=== PATIENT | male | born 1985 | race Caucasian/White ===

== ENCOUNTER 2016-07-21 08:53 | Inpatient (IN) ==
[2016-07-21] MEDS ORDERED: PROTONIX 80 MG in NS 80 ML IV ONE ×2 (09:26→10:30)
[2016-07-21] MEDS ORDERED: ZOFRAN IV ONE ×2 (09:26→12:04)
--- NOTE | 2016-07-21 09:38 | PROVIDER DOCUMENTATION ---
HPI-Abdominal Pain/GI Problem - General Chief Complaint: Vomiting Blood Stated Complaint: ABD PAIN,VOMITING BLOOD,LOW B/P Time Seen by Provider: 07/21/16 09:01 Source: patient Allergies/Adverse Reactions: Patient Allergies Allergy/AdvReac Type Severity Reaction Status Date / Time Iodinated Contrast Media - Allergy ITCHING Verified 07/21/16 09:59 Oral and [IV Dye] Home Medications: Home Medication List Medication Instructions Recorded Confirmed Last Taken Type Lisinopril 10 mg PO DAILY 07/21/16 07/21/16 07/20/16 History - History of Present Illness-ABD Nature of Presenting Problems: patient is a 31 y/o M that presents to the ER with abdominal cramping and nausea /vomiting( blood) this am on his way to work. He reports 24 hours of generalized weakness and dizziness to the point of near syncope. Patient denies any diarrhea or rectal bleeding. patient has history of ulcers in which he was admitted in April 2016 Abdominal Pain Onset Location: reports: [facility] Pain Radiation: reports: no radiation Quality of Pain: reports: aching, cramping Severity in ED: reports: moderate Onset/Duration: reports: abrupt, this morning Timing: reports: still present, constant Activities at Onset: reports: none Modifying Factors: improves with: nothing Associated Symptoms: reports: dizziness, nausea, vomiting, weakness. denies: back/neck pain, chest pain, constipation, diarrhea, fever/chills, genitourinary problems, shortness of breath Rectal Bleeding: reports: none Rectal Pain: reports: none Similar Symptoms Previously?: Yes Recently seen or treated by another doctor?: No Review of Systems - Adult - REVIEW OF SYSTEMS - ADULT Constitutional: denies: chills, fever Eyes: reports: no symptoms reported Ears, Nose, Mouth & Throat: reports: no symptoms reported Cardiovascular: denies: chest pain, palpitations, syncope Respiratory: denies: cough, shortness of breath, wheezing Gastrointestinal: reports: abdominal pain, hematemesis, nausea, vomiting. denies: constipation, diarrhea, rectal bleeding Genitourinary: denies: dysuria, frequency, hematuria Musculoskeletal: reports: muscle weakness. denies: joint pain, joint swelling Integumentary: reports: no symptoms reported Neurological: reports: dizziness/vertigo. denies: headache/migraines, seizure, syncope Psychiatric: reports: no symptoms reported Endocrine: reports: no symptoms reported Hematologic/Lymphatic: reports: no symptoms reported Allergic/Immunologic: reports: no symptoms reported All Other Systems: Reviewed and Negative Past History - Adult - PAST MEDICAL HISTORY-ADULT Review of Records: reports: Nursing Assessment Review, Medications Reviewed Gastrointestinal: reports: ulcer - IMMUNIZATION STATUS Childhood Immunizations: See Nurse Assessment Flu Vaccine: See Nurse Assessment - FAMILY HISTORY Family History: reviewed, not pertinent - SOCIAL HISTORY Smoking: non-smoker Living Situation: family Physical Exam-General - PHYSICAL EXAM-ADULT Initial Vital Signs Reviewed: Yes - CONSTITUTIONAL General Appearance: alert, no apparent distress - EYES Eyes: PERRL/EOMI, pink conjunctivae - HEAD, EARS, NOSE, MOUTH & THROAT HENMT: normocephalic/atraumatic, TMs normal, pharynx normal, other (dry oral mucosa) - NECK Neck: non-tender, full range of motion, normal inspection - RESPIRATORY Respiratory: lungs clear, normal breath sounds, no respiratory distress, no accessory muscle use - CARDIOVASCULAR Cardiovascular: regular rate, rhythm, no edema, no murmur - GASTROINTESTINAL (ABDOMEN) Abdominal Exam: soft, no organomegaly, no pulsatile mass, abnormal bowel sounds (hypoactive), tenderness (LUQ). negative: distended, guarding, rigid, hernia, mass - MUSCULOSKELETAL Back Exam: no CVA tenderness, no vertebral tenderness Extremity: normal range of motion, normal inspection, no pedal edema - SKIN Integumentary: normal color, warm/dry - NEUROLOGIC Neurologic: grossly normal, no motor/sensory deficits - PSYCHIATRIC Psych/Mental Status: normal mood/affect, normal thought content, normal thought process, oriented x 3 Progress - PLAN OF CARE/RESULTS Progress/Plan/Lab Results: plan of care-labs, meds, fluids Vital Signs Temp Pulse Pulse Pulse Pulse Resp BP 07/21/16 10:30 61 86 57 L 07/21/16 08:56 97.8 F 80 20 148/106 BP BP BP Pulse Ox 07/21/16 10:30 136/91 156/82 142/82 07/21/16 08:56 100 Iodinated Contrast Media - Oral and [IV Dye] Allergy (Verified 07/21/16 09:59) ITCHING Lisinopril 10 mg PO DAILY 07/21/16 Laboratory 07/21/16 07/21/16 07/21/16 09:37 09:37 09:37 WBC 7.73 RBC 5.30 Hgb 16.1 Hct 45.7 MCV 86.2 MCH 30.4 MCHC 35.2 RDW Std Deviation 12.5 Plt Count 306 MPV 9.8 Immature Gran % (Auto) 0.0 Neut % (Auto) 54.7 Lymph % (Auto) 35.3 Iroquois % (Auto) 7.5 Eos % (Auto) 1.6 Baso % (Auto) 0.9 H Immature Gran # (Auto) 0.00 Neut # (Auto) 4.23 Lymph # (Auto) 2.73 Iroquois # (Auto) 0.58 Eos # (Auto) 0.12 Baso # (Auto) 0.07 PT 11.3 INR 1.07 PTT (Actin FS) 28.5 Sodium 136 Potassium 4.4 Chloride 100 Carbon Dioxide 23 L Anion Gap 13 BUN 20 Creatinine 0.8 Estimated GFR/1.73 m2 > 60 BUN/Creatinine Ratio 25 Glucose 99 Calculated Osmolality 275 Calcium 9.1 Total Bilirubin 0.71 AST 30 ALT 27 Alkaline Phosphatase 85 Total Protein 7.9 Albumin 4.5 Globulin 3.4 Albumin/Globulin Ratio 1.3 Orders Category Date Time Status Orthostatic Vital Signs NOW Care 07/21/16 09:03 Active Saline Loc DIRECTED Care 07/21/16 09:02 Active CBC WITH ELECTRONIC DIFF [HEME] Stat Lab 07/21/16 09:37 Completed COMPREHENSIVE METABOLIC PANEL [CHEM] Stat Lab 07/21/16 09:37 Completed OCCULT BLOOD NON-FECES PL Stat Lab 07/21/16 09:02 Uncollected OCCULT BLOOD SCREEN STOOL PL Stat Lab 07/21/16 09:02 Uncollected PROTIME WITH INR [COAG] Stat Lab 07/21/16 09:37 Completed PTT [COAG] Stat Lab 07/21/16 09:37 Completed TYPE & SCREEN [BBK] Stat Lab 07/21/16 12:55 Received 0.9% Sodium Chloride Inj [Ns] 1,000 ml Med 07/21/16 09:02 Active IV 125 mls/hr 0.9% Sodium Chloride Inj [Ns] 80 ml Med 07/21/16 09:30 Ordered Pantoprazole [Protonix] 80 mg IV 10 mls/hr 0.9% Sodium Chloride Inj [Ns] 80 ml Med 07/21/16 10:30 Active Pantoprazole [Protonix] 80 mg IV 10 mls/hr Hydromorphone [Dilaudid] Med 07/21/16 12:04 Discontinued 1 mg IV NOW ONE Ondansetron [Zofran] Med 07/21/16 09:26 Discontinued 4 mg IV NOW ONE Ondansetron [Zofran] Med 07/21/16 12:04 Discontinued 4 mg IV NOW ONE Pantoprazole [Protonix] 80 mg Med 07/21/16 09:26 Discontinued 0.9% Sodium Chloride Inj [Ns] 80 ml IV NOW - CONSULTS/PCP/HOSPITALIST Notification #1 *Consult/PCP/Hospitalist*: Dr>Don Time Discussed: 12:55 Consult Disposition: Will see in ED, Admit Departure - Departure Time of Disposition Order: 13:08 DIAGNOSIS: Abdominal pain, Nausea & vomiting, Hematemesis with nausea Disposition: ADMITTED INPATIENT 09 Certified Medical Emergency: Emergent Condition: Stable Attestation - Scribe Verification/Attestation Scribe:: Umang Manrique Acting as Scribe for:: Ed Styles Scribe documention review:: This chart was documented by a scribe and accurately reflects the service the provider performed and the decisions made by the provider. Physician Attestation - Physician Attestation I, the provider, attest to the following statement:: Ed Styles Physician documentation Attestation:: This documentation recorded by the scribe accurately reflects the service I personally performed and the decisions made by me.
[2016-07-21 09:52] LABS: MANUAL DIFF NEEDED? NO
[2016-07-21 09:54] LABS: BASO% 0.9 % (0.0-0.8); EOS# 0.12 X1000 (0.0-0.7); EOS% 1.6 % (0.0-10.0); HEMATOCRIT 45.7 % (42.0-52.0); HEMOGLOBIN 16.1 g/dL (14.0-18.0); LYMPH# 2.73 X1000 (1.2-3.4); LYMPH% 35.3 % (20.5-51.1); MCH 30.4 PG (27-31); MCHC 35.2 g/dL (33-37); MCV 86.2 FL (81-99); MONO# 0.58 X1000 (0.11-0.59); MONO% 7.5 % (1.7-9.3); MPV 9.8 FL (7.4-10.4); NEUT% 54.7 % (42.2-75.2); PLT 306 X1000 (130-400)
[2016-07-21 10:10] LABS: INR 1.07; PROTIME 11.3 Seconds (9.2-11.7); PTT 28.5 Seconds (22.0-36.0)
[2016-07-21 10:13] LABS: AGAP 13; ALBUMIN 4.5 g/dL (3.5-5.0); ALKALINE PHOSPHATASE 85 U/L (32-122); BUN 20 mg/dL (8-22); CALCIUM 9.1 mg/dL (8.8-10.2); CHLORIDE 100 mmol/L (98-107); COSMO 275; GOT 30 U/L (10-34); GPT 27 U/L (10-44); POTASSIUM 4.4 mmol/L (3.5-5.1); SODIUM 136 mmol/L (136-145); TCO2 23 mmol/L (25-35); TOTAL BILIRUBIN 0.71 mg/dL (0.20-1.00); TOTAL PROTEIN 7.9 g/dL (6.3-8.3)
[2016-07-21] MEDS: NS 1,000 ML IV PRN ×2 (10:24→17:23)
[2016-07-21] MEDS ORDERED: DILAUDID IV ONE (12:04)
[2016-07-21] MEDS ORDERED: ZOFRAN IV PRN (14:17)
[2016-07-21] MEDS: CARAFATE LIQUID PO SCH ×2 (14:27→21:05)
--- NOTE | 2016-07-21 15:59 | Diag Imaging Result Document ---
PROCEDURE NAME: ABDOMEN/PELVIS W/O CONTRAST - 07/21/2016 CT ABDOMEN AND PELVIS WITHOUT CONTRAST: COMPARISON: None available. FINDINGS: The stomach and duodenum are grossly unremarkable given the limitations of an unenhanced study. The gallbladder appears normal. There is a staple line associated with the distal sigmoid colon indicating prior partial colectomy. There are few scattered colonic diverticula. There is no evidence of diverticulitis. There is no evidence of bowel obstruction. There are few nonspecific loops of small bowel containing gas, likely representing mild ileus. The appendix is normal. The kidneys and gallbladder are unremarkable. No focal inflammatory change, free abdominal gas, or free fluid is appreciated. There is a tiny umbilical hernia that contains only fat. The remainder of the solid viscera of the abdomen and pelvis and the remainder of the GI tract is essentially unremarkable. IMPRESSION: 1. A few gas-filled loops of small bowel that are nonspecific and may represent mild ileus. There is no evidence of obstruction. 2. Not mentioned above, there are shotty mesenteric lymph nodes with surrounding mild haziness at the root of the mesentery. They are nonspecific but are often associated with mesenteric panniculitis. 3. Incidental/nonacute findings detailed above but no definite acute pathology, otherwise. [facility]
--- NOTE | 2016-07-21 17:14 | HISTORY AND PHYSICAL ---
PRIMARY CARE PROVIDERS: Are all located through the [facility] in [place]. CHIEF COMPLAINT: Vomiting blood. HISTORY OF PRESENT ILLNESS: Mr. Bustillo is a 31-year-old male with a past medical history of recent gastric ulcer in April of 2016, diverticulitis, hypertension, SVT, PAT, anxiety, and depression, who states that yesterday evening he felt a little bit woozy but shrugged it off. No nausea or vomiting at that time. He awoke this morning with some vomiting of blood. He decided he felt like he was okay to go to work, went to work, and on his way to work he started getting really woozy. Stated that he felt like his blood pressure was really low and so he came here for medical attention. Upon further evaluation, he states that in April of 2016 he spent 1 night in the hospital for gastric ulcer that was found on EGD, in [place]. He was treated with, he states, Protonix and Carafate but did not continue to take medications after leaving. He also has started complaining of some epigastric type pain even to palpation but did not have this pain prior to today. We will admit him to the medical floor, will do IV Protonix, start him on Carafate, and consult gastroenterology. PAST MEDICAL HISTORY: 1. Gastric ulcer in April of 2016. Did not require blood at that time. 2. Diverticulitis in the past, status post sigmoid colectomy secondary to diverticulitis. 3. Hypertension, takes lisinopril. 4. SVT/PAT. Apparently he supposed to Verapamil for this. He does not have it listed on his medication list and he states that his last SVT or atrial tachycardia was about a week ago. 5. Anxiety and depression. PAST SURGICAL HISTORY: 1. Sigmoid colectomy. 2. Cardiac ablation. 3. Ureter/kidney reconstruction as a child. 4. April EGD. SOCIAL HISTORY: One pack per week smoker. Drinks alcohol about once every 2 weeks. Denies illicit drug use. He is a and he is . FAMILY HISTORY: Positive for hypertension. REVIEW OF SYSTEMS: Fourteen point review of systems were complete and all were negative except those mentioned in the above HPI. ALLERGIES: Iodine and contrast, oral and IV. HOME MEDICATIONS: Lisinopril. LABORATORY DATA: White blood cells 7,000, hemoglobin 16, hematocrit 45, platelet count 306,000. INR 1.07, PTT is 28.5. Sodium 136, potassium 4.4, BUN 20, creatinine 0.8, glucose 99, calcium 9.1. Liver enzymes normal. IMAGING: Abdominal and pelvic CT without contrast has been ordered. PHYSICAL EXAMINATION: VITAL SIGNS: Temperature is 97.8 degrees, heart rate looks like it is anywhere from 56-80. Respiratory rate 18, blood pressure 129/73, O2 saturation 98% on room air. He is 6 feet 1 inch tall, 232 pounds. He did have orthostatics ran. It looks like the heart rate is what changed the most. Sitting heart rate was 61 and blood pressure 136/91, standing heart rate 86 and blood pressure 156/82, and supine heart rate 57 and blood pressure 142/82. GENERAL: Mr. Bustillo is a 31-year-old male in no acute distress. Able to answer all questions appropriately. HEENT: Atraumatic, normocephalic. Pupils equal, round, reactive to light. Extraocular movements intact. NECK: No JVD or carotid bruits noted. CARDIOVASCULAR: S1, S2. Regular rate and rhythm. No rubs, gallops, or murmurs. PULMONARY: Clear to auscultate. Bilateral breath sounds. No accessory muscle use or work of breathing noted. GI: Soft. Positive bowel sounds x4. Tender in the epigastric region to palpation. NEUROLOGIC: A O x4. Moves all extremities equally. EXTREMITIES: No edema noted. There are +2 dorsalis and radial pulses. SKIN: Warm, dry, intact. ASSESSMENT AND PLAN: 1. Recent history of gastric ulcer that was bleeding, now with complaints of vomiting blood. Gastroenterology consult. Will do serial hematocrits and hemoglobins. Start him on Carafate. IV drip Protonix. NPO after midnight. Clears until then. 2. History of supraventricular tachycardia and paroxysmal atrial tachycardia. He does have some irregularity to his heart rate. He did complain of feeling woozy as if his blood pressure was low. We will continue with orthostatics every 12 hours and do an EKG. 3. Hypertension. Hold lisinopril for now. 4. Anxiety and depression noted. 5. Tobacco abuse. Cessation was discussed. 6. Gastrointestinal prophylaxis. Proton pump inhibitor. 7. Deep venous thrombosis prophylaxis. TEDs and pneumatics. Dictated by NUVIA Subramanian for Eloy Ochoa MD
[2016-07-21] MEDS: DILAUDID IV PRN ×2 (17:22→21:44)
[2016-07-21] MEDS: PROTONIX 80 MG in NS 80 ML IV SCH ×2 (19:30→21:04)
[2016-07-21 20:39] LABS: HEMATOCRIT 42.5 % (42.0-52.0); HEMOGLOBIN 14.7 g/dL (14.0-18.0)
--- NOTE | 2016-07-21 21:42 | CONSULTATION ---
DATE OF CONSULTATION: 07/21/2016 CONSULTING PHYSICIAN: Eloy Ochoa M.D. REASON FOR CONSULTATION: Abdominal pain and hematemesis. HISTORY: This is a 31-year-old gentleman who has a history of peptic ulcer disease. In fact he was admitted to the hospital in [place] in April of last year with GI bleed. He was found to have esophagitis and apparently had a bleeding gastric ulcer. I do not have the detailed report with me. This is what he has informed me. He was admitted to hospital today after he presented to the emergency room with sudden onset of abdominal pain associated with nausea. He had 1 episode of emesis and he had bright red blood in his emesis. He also had some clots and altered blood. Since then he has not had any nausea or vomiting but he continues to have abdominal pain. He points to the epigastric area, sharp, sometimes pressure-like. He reports that he had a bowel movement today at 11 in the morning which was normal. He has not had any melena. He does complain of feeling dizzy. In fact while driving to work he had to stop because of dizziness. He had some sinus symptoms yesterday with headache so he took some Tylenol Sinus and Aleve. He has had a history of gastroesophageal disease and takes medication for that. He denies any dysphagia or odynophagia. His appetite has been good up to today. He denies any constipation or diarrhea. He has not any melena or bright red blood per rectum. He tells me he felt febrile yesterday. He denies any dysuria, polyuria or hematuria. He had some cough but not productive and did not have hemoptysis. He has a history of SVT. In fact he had 2 ablations done. He did have some palpitations today. PAST MEDICAL HISTORY: Significant for hypertension, history of SVT status post ablation x2, history of bleeding peptic ulcer disease and gastroesophageal disease. He also has history of nephrolithiasis and diverticulitis status post colon resection. PAST SURGICAL HISTORY: He has had sigmoid resection, ablation x2, ureter repair as a child. MEDICATIONS PRIOR TO HOSPITALIZATION: He was on lisinopril 10 mg daily. ALLERGIES: He claims to be allergic to IVP dye. SOCIAL HISTORY: He is and smokes about a pack of cigarette which lasts about a week. He drinks on occasion. He drinks about 6 cocktails every other week or so. Does not use illicit drugs. FAMILY HISTORY: No history of colon cancer, stomach cancer, pancreatic cancer, kidney disease. However his sister has been diagnosed with Crohn's disease. REVIEW OF SYSTEMS: As per HPI as above. PHYSICAL EXAMINATION: General: On examination, very pleasant white male, overweight. He is conscious, alert, appears to be in no distress. Vital Signs: Temperature 97.5 degrees, pulse 55 per minute and regular, breathing at 18, blood pressure 172/92. He weighs about 230 pounds. He is 6 feet 1 inch tall. HEENT: Head is atraumatic, normocephalic. Eyes: Conjunctivae normal. Sclerae anicteric. Nares are patent. No discharge noted. Mouth mucosa is moist. Throat is normal. Neck: Supple. No lymphadenopathy or thyromegaly. Chest: Bilaterally symmetrical moving with respirations. Breath sounds audible bilaterally. No rhonchi or crepitations could be heard. Heart: S1 and S2 audible no murmur appreciated. Abdomen: Full, soft , but tender in the epigastric area slightly on the left side but no rebound tenderness or guarding noted. No mass or visceromegaly noted. Bowel sounds are audible. No pedal cyanosis or clubbing was noted. Central Nervous System: Grossly intact. No sensory or motor deficit. LABS: Reviewed. Showed WBC 7.73, hemoglobin 16.1, hematocrit 45.7, MCV 86.2, platelets were 306. PT 11.3, INR 1.07, PTT 28.5. CMP essentially normal. ASSESSMENT AND PLAN: This is a 31-year-old gentleman with history of bleeding peptic ulcer disease. He had EGD and treatment in April. He has presented with abdominal pain and hematemesis. Although is hematocrit and hemoglobin is stable, it seems like he has had a mild GI bleed. I would continue on proton pump inhibitor. This has already been started. Recheck hemoglobin and hematocrit. Transfuse as necessary. In the meantime we will schedule for esophagogastroduodenoscopy tomorrow and depending on the findings, further plans will be made. He may need urgent EGD if he starts to bleed again. I have explained the findings and plan with the patient. He understands all the pertinent questions. [facility]
[2016-07-22] MEDS: CARAFATE LIQUID PO SCH ×4 (02:01→14:56)
[2016-07-22] MEDS: DILAUDID IV PRN ×2 (02:05→10:40)
[2016-07-22 02:07] LABS: MANUAL DIFF NEEDED? NO
[2016-07-22 02:12] LABS: BASO% 0.8 % (0.0-0.8); EOS# 0.23 X1000 (0.0-0.7); EOS% 3.1 % (0.0-10.0); HEMATOCRIT 40.2 % (42.0-52.0); LYMPH# 3.41 X1000 (1.2-3.4); LYMPH% 45.3 % (20.5-51.1); MCH 30.2 PG (27-31); MCHC 34.8 g/dL (33-37); MCV 86.8 FL (81-99); MONO# 0.69 X1000 (0.11-0.59); MONO% 9.2 % (1.7-9.3); MPV 9.7 FL (7.4-10.4); NEUT% 41.6 % (42.2-75.2); PLT 291 X1000 (130-400); RBC 4.63 XMIL (4.7-6.1)
[2016-07-22 02:22] LABS: INR 1.09; PROTIME 11.6 Seconds (9.2-11.7); PTT 28.5 Seconds (22.0-36.0)
[2016-07-22 02:30] LABS: AGAP 9; ALBUMIN 3.7 g/dL (3.5-5.0); ALKALINE PHOSPHATASE 71 U/L (32-122); BUN 16 mg/dL (8-22); CALCIUM 8.6 mg/dL (8.8-10.2); CHLORIDE 100 mmol/L (98-107); COSMO 269; GOT 21 U/L (10-34); GPT 20 U/L (10-44); POTASSIUM 4.1 mmol/L (3.5-5.1); SODIUM 134 mmol/L (136-145); TCO2 25 mmol/L (25-35); TOTAL PROTEIN 6.4 g/dL (6.3-8.3)
[2016-07-22] MEDS: NS 1,000 ML IV PRN ×2 (03:59→12:07)
[2016-07-22] MEDS: PROTONIX 80 MG in NS 80 ML IV SCH (06:44)
--- NOTE | 2016-07-22 07:18 | EKG Report ---
Test Performed on : 07/22/2016 06:10:26 AM Test Reason : chest pain Blood Pressure : / mmHG Vent. Rate : 056 BPM Atrial Rate : 056 BPM P-R Int : 150 ms QRS Dur : 106 ms QT Int : 416 ms P-R-T Axes : 041 065 059 degrees QTc Int : 401 ms Sinus bradycardia. Otherwise normal ECG No previous ECGs available Confirmed by Sp Singh MD ([id number]) on 07/24/2016 9:48:07 PM
[2016-07-22 09:19] LABS: HEMATOCRIT 42.6 % (42.0-52.0); HEMOGLOBIN 14.6 g/dL (14.0-18.0)
--- NOTE | 2016-07-22 13:21 | PROGRESS NOTE ---
DATE: 07/22/2016 SUBJECTIVE: He states he is feeling better, but he still has some dyspepsia and epigastric discomfort. He has a history of ulcer in the past. I think the plan was to do an EGD this morning or sometime this afternoon. OBJECTIVE: Vital Signs: Temperature 98.2 degrees, he has remained afebrile. Pulse 60, respirations 18, blood pressure 123/80. Blood pressure is 138/87. No significant orthostasis. Lungs: Clear in all lung no. Cardiovascular: Regular rhythm and rate without murmur or S3. Abdomen: Soft. Skin: Warm and dry. LABORATORY DATA: White count 7530, hematocrit is 40, platelet count 291,000. Sodium 134, potassium 4.1, chloride 100, bicarbonate 25, BUN 16, creatinine 0.9, albumin 3.7. ASSESSMENT AND PLAN: Dyspepsia, upper gastrointestinal pain. The plan I think is for an esophagogastroduodenoscopy today. Dr. Noonan is consulted and feels he has a bleeding peptic ulcer. He had an esophagogastroduodenoscopy and treatment in April, but he presented with more abdominal pain, hemoptysis. His hematocrit is stable. Review of orders: I do not see any changes at this point. He is on Protonix drip, Carafate 1 gram every 6 hours.
[2016-07-22] MEDS ORDERED: MYLICON DROPS (DOSE) MISC ONE (13:44)
[2016-07-22] MEDS ORDERED: VERSED ONE (14:02)
[2016-07-22] MEDS ORDERED: DIPRIVAN 1% ONE (14:03)
[2016-07-22] MEDS ORDERED: LR 1,000 ML ONE (14:07)
[2016-07-22] MEDS ORDERED: XYLOCAINE-MPF 2% ONE (14:07)
[2016-07-22] MEDS ORDERED: ANESTHESIA PB SET 88 IN 5742 ONE (14:07)
[2016-07-22 14:29] LABS: HEMATOCRIT 40.3 % (42.0-52.0)
[2016-07-22 15:49] VITALS: BP 125/75
--- NOTE | 2016-07-22 19:46 | OPERATIVE NOTE ---
PROCEDURE DATE: 07/22/2016 PROCEDURE: Esophagogastroduodenoscopy and biopsy. PREOPERATIVE DIAGNOSIS: Upper gastrointestinal bleed. POSTOPERATIVE DIAGNOSIS: 1. Esophagitis. 2. Gastric ulcers. 3. Erosive gastritis. 4. Duodenitis. MEDICATION USED: MAC as per Anesthesia. SCOPE USED: Olympus GIF HQ-190. HISTORY: This is a 31-year-old gentleman who presented to the hospital with hematemesis. He was hemodynamically stable. Hemoglobin and hematocrit were also within acceptable range. Endoscopy was done for diagnostic as well as therapeutic purposes. DESCRIPTION OF PROCEDURE: Informed consent obtained from the patient. The procedure, risks, benefits, alternatives were explained in layman's terms. He understood. All his pertinent questions were answered. Patient was brought to the endoscopy unit and was premedicated as per Anesthesia. After adequate sedation, while he was lying in left lateral position, the gastroscope was introduced into the posterior pharynx and advanced under direct vision into the esophagus. GE junction was noted at about 40 cm from the incisor. Right at the GE junction there was evidence of erosive esophagitis. No webs, rings, varices were seen. Scope was then passed through the esophagus into the stomach. The stomach was examined in both straight and retroflexed view, which revealed multiple erosions scattered throughout the body of the stomach. On retroflexed view in the upper part of the body I did see two ulcers as well. These were clean based, punched-out and were about 5-8 mm in size. Then the ulcers and erosions were scattered throughout the body. No stigmata of recent bleed or evidence of active bleeding was seen. Again, multiple biopsies were obtained from the ulcer edges. The scope was then passed through the normal pylorus, into the duodenal bulb, and then 2nd part of duodenum. I did see evidence of duodenitis in the duodenal bulb, where there was patchy hyperemia noted. No ulcer, AVM or masses seen. The 2nd portion of duodenum appeared to be normal. The scope was then removed. Patient tolerated the procedure well. No complications noted. Patient was then transferred to the recovery area in a stable condition. IMPRESSION: 1. Esophagitis. 2. Gastric ulcers. 3. Gastritis. 4. Duodenitis. RECOMMENDATION: Patient will be continued on proton pump inhibitor, but I will change it to Prilosec 40 mg b.i.d. strongly recommend to avoid any nonsteroidal antiinflammatory drugs. I will follow up the biopsy report. If Helicobacter pylori is positive, we will treat and I will follow him at the office after discharge. Depending on his progress, further plans made. I have explained the findings and plan to patient, but he is still sedated. No family members were available to discuss the case and findings.
--- NOTE | 2016-07-22 20:28 | DISCHARGE SUMMARY ---
ADMISSION DATE: 07/21/2016 DISCHARGE DATE: 07/22/2016 HISTORY OF PRESENT ILLNESS: A 31-year-old white male came in with complaint of vomiting blood. He has a past medical history of gastric ulcer in April 2016, diverticulitis, hypertension, SVT, PAT, anxiety and depression. He states that yesterday he felt a little bit woozy but shrugged it off. No nausea or vomiting at the time. He woke up this morning with some vomiting of blood. He felt like he was okay to go work. He went to work and on his way to work he started getting woozy. He started to feel like his blood pressure was really low and so he came here for medical attention. Upon further evaluation he states that in April 2016 he spent one night in the hospital with a gastric ulcer found on EGD in [place] which was treated with Protonix and Carafate but he did not continue taking his medications after leaving. He also started complaining of some epigastric type pain even to palpation but did not have this pain prior to admission. PAST MEDICAL HISTORY: 1. Gastric ulcer in 2015. He did not require blood at that time. 2. Diverticulitis in the past status post sigmoid colectomy secondary to diverticulitis. 3. Hypertension. He takes lisinopril. 4. SVT and PAT. Apparently he is supposed to be on verapamil but does not have it listed on his medications. 5. Anxiety and depression. PAST SURGICAL HISTORY: 1. Sigmoid colectomy. 2. Cardiac ablation. 3. Ureter and kidney reconstruction as a child. 4. EGD in April of this year. HOSPITAL COURSE: The patient felt a little better with some fluids, antiemetics. He underwent EGD this morning and they found some gastritis. He felt that he could go home on 07/22/2016. He will continue to take his proton pump inhibitor and Carafate 1 g q.6 hours. I will give him his Prilosec 40 mg b.i.d. He is to follow up with primary care.
[2016-07-22] MEDS ORDERED: PRILOSEC PO SCH (21:00)
--- NOTE | 2016-08-15 10:03 | DISCHARGE SUMMARY ---
ADMISSION DATE: 07/21/2016 DISCHARGE DATE: 07/22/2016 DISCHARGE SUMMARY ADDENDUM: The patient presented with hematemesis. EGD showed erosive gastritis, esophagitis, gastric ulcer, and duodenitis. He was treated with a Protonix drip and Carafate. After the study, we were asked to specify the GI bleed. So, the patient had erosive gastritis with a bleed, esophagitis with a bleed. and gastric ulcers with bleeding and I would add duodenitis with bleeding. All of those. So, diffuse gastritis and ulcerative gastritis with bleeding.
== END 2016-07-22 18:18 | disposition home or self-care (01) | DRG 391 ==
LOC: ED 08:53 → 3N 13:52
PROVIDERS: ATTEND Emergency Medicine
PROC: 0DB68ZX Excision of Stomach, Via Natural or Artificial Opening Endoscopic, Diagnostic (ICD-10-PCS; principal; 2016-07-22 13:25)
DX: K21.0 Gastro-esophageal reflux disease with esophagitis (principal); K29.81 Duodenitis with bleeding; K25.4 Chronic or unspecified gastric ulcer with hemorrhage; K29.61 Other gastritis with bleeding; I10 Essential (primary) hypertension; G47.33 Obstructive sleep apnea (adult) (pediatric); F41.9 Anxiety disorder, unspecified; F32.9 Major depressive disorder, single episode, unspecified; F17.210 Nicotine dependence, cigarettes, uncomplicated; Z87.11 Personal history of peptic ulcer disease; Z90.49 Acquired absence of other specified parts of digestive tract
CPT/HCPCS: 36415; 74176; 80053; 83735; 84443; 85014; 85018; 85025; 85610; 85730; 86850; 86900; 86901; 88305; 88312; 88313; 93005; 93010; 96365; 96366; 96375; C9113; J1170; J2250; J2405; J7030; J7120; S0164